=== PATIENT | female | born 2000 | race Caucasian/White ===

== ENCOUNTER 2024-11-04 22:01 | Emergency (ER) | payer BC ==
[~2024-11-04] VITALS: Ht 157.5 cm; Wt 60.3 kg
[~2024-11-04 22:01] MED LIST: NO MEDS
[2024-11-04] MEDS: TRAMADOL HCL 50 MG TAB PO STA (23:18)
[2024-11-04 23:58] VITALS: PULSE 94; RESP 16; TEMP 98.7; O2SAT 100
[2024-11-05] MEDS ORDERED: ULTRAM 50MG50 MG PO (00:01)
== END 2024-11-05 00:03 | disposition home or self-care (01) ==
LOC: ER 22:07
DX: M25.572 Pain in left ankle and joints of left foot (principal); M25.571 Pain in right ankle and joints of right foot; Y93.75 Activity, martial arts
CPT/HCPCS: 99283